=== PATIENT | female | born 1995 | race Caucasian/White ===

== ENCOUNTER 2022-07-18 14:20 | Outpatient (CLI) | payer OTHER, BC, SELFPAY | END 2022-07-18 14:21 | disposition home or self-care (01) | LOC: FRMREF 14:20 | PROVIDERS: Visit Provider Advanced Practice Midwife | DX: O20.9 Hemorrhage in early pregnancy, unspecified (principal) | CPT/HCPCS: 84702; 86900; 86901 ==

== ENCOUNTER 2022-07-20 16:09 | Outpatient (CLI) | payer OTHER, BC, SELFPAY ==
[2022-07-20 22:29] LABS: HCG Quantitative* 70.58 mIU/mL
== END 2022-07-20 16:10 | disposition home or self-care (01) ==
LOC: FRMREF 16:09
PROVIDERS: Visit Provider Advanced Practice Midwife
DX: O03.80 Unspecified complication following complete or unspecified spontaneous abortion (principal)
CPT/HCPCS: 84702

== ENCOUNTER 2025-01-14 11:53 | Outpatient (CLI) | payer MEDICAID, SELFPAY ==
--- NOTE | 2025-01-14 12:15 | CRLHL7_ITS ---
For Patients: As a result of the Cures Act, medical imaging exams and procedure reports are released immediately into your electronic medical record. You may view this report before your referring provider. If you have questions, please contact your health care provider. OB ULTRASOUND INDICATION: dating. TECHNIQUE: Transabdominal and transvaginal OB ultrasound. Transvaginal imaging performed to better demonstrate the endometrium and ovaries. LMP: 11/20/2024. ANKITA by LMP: 08/27/2025. GA: 7 w, 6 d. CRL: 1.9 cm. 8 w 3 d. ANKITA: 08/23/2024. FHR: 167 BPM. Gestational sac: 3.6 cm. Appears within normal limits. Yolk sac: 2.8 mm. Appears within normal limits. Right ovary: Within normal limits. 4.2 x 2.5 x 2.8 cm. CL. Left ovary: Within normal limits. 2.9 x 2 x 1.8 cm. COMMENT: Right ovary corpus luteum: 2 x 1.6 x 2 cm. IMPRESSION: 1. Transvaginal imaging was used to visualize early intrauterine , as well as the adnexa regions. 2. Normal sonographic appearance of an early intrauterine . 3. The measurements and dates are given above. 4. Normal cardiac activity present. 5. Incidental corpus luteum cyst in the right ovary. DALLAS VELÁSQUEZ MD FACR Pediatric/Diagnostic Radiologist Cardiothoracic Imaging Transcribed: 2:10 p.m. [email or web address] jj/Dictated by: Dallas Velásquez MD @ 01/19/2025 9:47:00 AM (Electronically Signed)
== END 2025-01-14 11:54 | disposition home or self-care (01) ==
LOC: US 11:54
PROVIDERS: Visit Provider Advanced Practice Midwife
DX: Z34.91 Encounter for supervision of normal pregnancy, unspecified, first trimester (principal); O34.81 Maternal care for other abnormalities of pelvic organs, first trimester; N83.11 Corpus luteum cyst of right ovary; Z3A.01 Less than 8 weeks gestation of pregnancy
CPT/HCPCS: 76817; 83021; 84439; 84443; 86592; 86703; 86704; 86706; 86762; 86787; 86803; 86850; 87086; 87340; 87491; 87591

== ENCOUNTER 2025-02-11 14:12 | Outpatient (CLI) | payer MEDICAID, SELFPAY | END 2025-02-11 14:13 | disposition home or self-care (01) | PROVIDERS: Visit Provider Advanced Practice Midwife | DX: Z34.92 Encounter for supervision of normal pregnancy, unspecified, second trimester (principal) | CPT/HCPCS: 84439; 84443 ==

== ENCOUNTER 2025-04-12 09:58 | Outpatient (CLI) | payer BC, SELFPAY ==
--- NOTE | 2025-04-12 10:15 | CRLHL7_ITS ---
For Patients: As a result of the Century Cures Act, medical imaging exams and procedure reports are released immediately into your electronic medical record. You may view this report before your referring provider. If you have questions, please contact your health care provider. OB ULTRASOUND SURVEY LMP: 11/20/2024. ANKITA by LMP: 08/27/2024. GA: 20 w, 3 d. INDICATION: Supervision of normal . TECHNIQUE: Real time grayscale imaging of the fetus was performed. Evaluate anatomy. Transabdominal was performed. position: Vertex, oblique, breech, multiple positions. Cervix: Visualized. Technique: Transabdominal. Length of closed cervix: 3.7 cm. Placenta/cord: Anterior. Technique: Transabdominal. Placenta tip to internal OS: 4.4 cm. Umbilical Cord: 3-vessel cord. Placenta insertion: Marginal (within 2 cm of placenta edge). Amniotic Fluid: 6.5 cm SDP (greater than/equal to: 2- less than 8 cm). SURVEY: Observed Structures. Calvarium/Spine: Cerebellum: 2.2 cm, 22 w 0 d. Cisterna Magna: 4.8 mm. Nuchal Fold: 5.4 mm. Lateral Ventricle: 4.9 mm. CSP: Yes. Midline Falx: Yes. Choroid Plexus: Yes. Spine: Yes. Abdomen: Stomach: Yes. Abd Cord Insertion: Yes. Urinary Bladder: Yes. Kidneys: Yes. Diaphragm: Yes. Face: Nose/lips: Yes. Orbital view: Yes. Profile: Yes. Limbs: Upper Extremities: Yes. Lower Extremities: Yes. Hands: Yes. Feet: Yes. Vascular: 4-Chamber Heart: Yes. LVOT: Yes. RVOT: Yes. 3VV: Yes. 3VTV: Yes. BPD: 5.0 cm. 21 w, 1 d, 76%. HC: 18.6 cm. 20 w, 6 d, 64%. AC: 16.8 cm. 21 w, 6 d, 85%. FL: 35 cm. 21 w, 1 d, 69%. FL/AC ratio: 21.02%. HC/AC ratio: 1.10. heart rate: 165 bpm. age by this US: 21 w, 3 d. ANKITA by this US: 08/20/2025. EFW: 426.10g. Weight: 0 lbs., 15 oz. Percentile by ANKITA: 93%. IMPRESSION: 1. Sonographic gestational age 21 weeks 3 days and sonographic due date 08/20/2025. Sonographic age is 1 week ahead of the clinical age. 2. Estimated weight 93rd percentile. Abdominal circumference 85th percentile. 3. Normal anatomic survey. 4. Marginal placental cord insertion located 1.2 cm from the placental edge. Mejia Rodriges M.D. Diagnostic Radiologist [email or web address] jj/Dictated by: Mejia Rodriges MD @ 04/12/2025 5:56:00 PM (Electronically Signed)
== END 2025-04-12 09:59 | disposition home or self-care (01) ==
LOC: US 09:59
PROVIDERS: Visit Provider Advanced Practice Midwife
DX: O36.62X0 Maternal care for excessive fetal growth, second trimester, not applicable or unspecified (principal); Z3A.20 20 weeks gestation of pregnancy
CPT/HCPCS: 76805

== ENCOUNTER 2025-06-04 14:48 | Outpatient (CLI) | payer BC, SELFPAY | END 2025-06-04 14:49 | disposition home or self-care (01) | LOC: NFLDREF 06-09 09:58 | PROVIDERS: Visit Provider Advanced Practice Midwife | DX: E03.8 Other specified hypothyroidism (principal); Z34.93 Encounter for supervision of normal pregnancy, unspecified, third trimester | CPT/HCPCS: 84439; 84443; 86780 ==

== ENCOUNTER 2025-06-07 07:48 | Outpatient (CLI) | payer BC, SELFPAY | END 2025-06-07 07:49 | disposition home or self-care (01) | LOC: NFLDREF 07:48 | PROVIDERS: Visit Provider Advanced Practice Midwife | DX: Z34.93 Encounter for supervision of normal pregnancy, unspecified, third trimester (principal) | CPT/HCPCS: 82951; 82952 ==